=== PATIENT | male | born 2000 | race Caucasian/White ===

== ENCOUNTER → 2022-08-30 | Outpatient (CLI) | payer OTHER ==
--- NOTE | 2022-08-30 16:45 | Diagnostic Imaging Report ---
Indication: Left wrist pain 3 views of the left wrist show no fracture, dislocation or other acute abnormalities. IMPRESSION: Negative left wrist Dictated by: Dictated on workstation # [id number]
== END ==
LOC: RAD 16:26
PROVIDERS: ATTEND Registered Nurse Critical Care Medicine
DX: M71.532 Other bursitis, not elsewhere classified, left wrist (principal)
CPT/HCPCS: 73110